=== PATIENT | male | born 1990 | race Two or more races ===

== ENCOUNTER 2019-04-20 15:57 | Emergency (ER) | payer BC, OTHER ==
[2019-04-20] MEDS: morphine 2 MG INJ IV (16:49)
[2019-04-20] MEDS: SOD CHLORIDE 0.9% 1,000 ML IV (16:49)
[2019-04-20] MEDS: ONDANSETRON 4 MG INJ IV (16:49)
[2019-04-20 16:56] LABS: ADD MAN DIFF? NO
[2019-04-20 17:01] LABS: BASOPHILS % 0.7 % (0.0-2.0); EOSINOPHILS # 0.3 10^3/ul (0.0-0.5); EOSINOPHILS % 4.2 % (0.0-7.0); HEMATOCRIT 42.3 % (42.0-52.0); HEMOGLOBIN 13.6 g/dl (14.0-18.0); LYMPHOCYTES # 2.1 10^3/ul (0.8-2.9); LYMPHOCYTES % 34.6 % (15.0-51.0); MEAN CORPUSCULAR HEMOGLOBIN 28.7 pg (29.0-33.0); MEAN CORPUSCULAR HGB CONC 32.2 g/dl (32.0-37.0); MEAN CORPUSCULAR VOLUME 89.2 fl (82.0-101.0); MEAN PLATELET VOLUME 9.4 fl (7.4-10.4); MONOCYTE # 0.5 10^3/ul (0.3-0.9); MONOCYTES % 8.6 % (0.0-11.0); NEUTROPHIL # 3.2 10^3/ul (1.6-7.5); NEUTROPHILS % 51.7 % (39.0-77.0); PLATELET COUNT 282 10^3/UL (140-415); RED BLOOD COUNT 4.74 10^6/ul (4.70-6.10); RED CELL DISTRIBUTION WIDTH 12.3 % (11.5-14.5)
[2019-04-20 17:01] LABS: WHITE BLOOD COUNT 6.1 10^3/ul (4.8-10.8)
[2019-04-20 17:03] LABS: ADD UMIC NO; UR ASCORBIC ACID NEGATIVE (NEGATIVE); UR BILIRUBIN (Dip) NEGATIVE (NEGATIVE); UR BLOOD (Dip) NEGATIVE (NEGATIVE); UR CLARITY CLEAR (CLEAR); UR COLOR YELLOW (YELLOW); UR GLUCOSE (Dip) NEGATIVE (NEGATIVE); UR KETONES (Dip) NEGATIVE (NEGATIVE); UR LEUKOCYTE ESTERASE (Dip) NEGATIVE Leu/ul (NEGATIVE); UR NITRITE (Dip) NEGATIVE (NEGATIVE); UR SPECIFIC GRAVITY (Dip) 1.024 (1.003-1.030); UR TOTAL PROTEIN (Dip) NEGATIVE (NEGATIVE); UR UROBILINOGEN (Dip) NEGATIVE (NEGATIVE)
[2019-04-20 17:17] LABS: ALANINE AMINOTRANSFERASE 37 IU/L (13-69); ALBUMIN 4.3 g/dl (3.3-4.9); ALBUMIN/GLOBULIN RATIO 1.34; ALKALINE PHOSPHATASE 47 IU/L (42-121); ANION GAP 7 (5-13); ASPARTATE AMINO TRANSFERASE 28 IU/L (15-46); BILIRUBIN,INDIRECT 0.9 mg/dl (0-1.1); BILIRUBIN,TOTAL 0.9 mg/dl (0.2-1.3); BLOOD UREA NITROGEN 19 mg/dl (7-20); CALCIUM 9.6 mg/dl (8.4-10.2); CARBON DIOXIDE 28 mmol/L (21-31); CHLORIDE 103 mmol/L (97-110); CREATININE 1.04 mg/dl (0.61-1.24); Estimated GFR > 60 mL/min (>60); GLUCOSE 94 mg/dl (70-220); LIPASE 73 U/L (23-300); POTASSIUM 4.4 mmol/L (3.5-5.1); SODIUM 138 mmol/L (135-144); TOTAL PROTEIN 7.5 g/dl (6.1-8.1)
[2019-04-21] MEDS ORDERED: IOHEXOL 300MG/ML 150 ML BTL (21:49)
[2019-04-21] MEDS ORDERED: SOD CHLORIDE 0.9% 100 ML (21:49)
== END 2019-04-20 18:20 | disposition home or self-care (01) ==
LOC: FTE 15:57
DX: R10.12 Left upper quadrant pain (principal); F17.210 Nicotine dependence, cigarettes, uncomplicated
CPT/HCPCS: 36415; 71045; 80053; 81003; 83690; 85025; 96361; 96374; 96375; 99284-25

== ENCOUNTER 2019-04-21 21:37 | Emergency (ER) | payer BC ==
[2019-04-21] MEDS: SOD CHLORIDE 0.9% 100 ML (22:06)
[2019-04-21] MEDS: IOHEXOL 300MG/ML 150 ML BTL (22:07)
== END 2019-04-21 23:17 | disposition home or self-care (01) ==
LOC: FTE 23:17
DX: R10.11 Right upper quadrant pain (principal); F17.210 Nicotine dependence, cigarettes, uncomplicated
CPT/HCPCS: 74177; 99284-25